=== PATIENT | female | born 1965 | race Hispanic/Latino ===

== ENCOUNTER 2018-06-28 15:38 | Emergency (ER) | payer BC ==
[2018-06-28 15:40] VITALS: BMI 39.7
[2018-06-28 15:50] VITALS: RESP 18
[2018-06-28] MEDS ORDERED: Sodium Chloride 0.9% 1,000 ML IV ONE (16:02)
[2018-06-28] MEDS ORDERED: Sodium Chloride 0.9% 1,000 ML ONE (16:17)
--- NOTE | 2018-06-28 16:18 | C.PDOC ---
History Of Present Illness 52 year old female with a history of diabetes presents to the emergency department with complaints of pain, swelling, and warmth to her right lower chin area for the past three days. Patient states that she has tried applying both hot and cold pressure to the area, as well as alcohol with no relief. She denies gingival or teeth pain. Time Seen by Provider: 06/28/18 15:53 Chief Complaint (Nursing): Abnormal Skin Integrity History Per: Patient History/Exam Limitations: no limitations Onset/Duration Of Symptoms: Days (3) Current Symptoms Are (Timing): Still Present Location Of Injury: Right: Face Quality Of Symptoms: Painful, Swollen. denies: Draining Past Medical History Reviewed: Historical Data, Nursing Documentation, Vital Signs Vital Signs: Last Vital Signs Temp 98.4 F 06/28/18 15:43 Pulse 77 06/28/18 15:43 Resp 18 06/28/18 15:43 BP 152/88 H 06/28/18 15:43 Pulse Ox 97 06/28/18 16:25 - Medical History PMH: Anxiety, Arthritis, Depression, Diabetes, HTN, Hypercholesterolemia, Hypothyroidism Denies: Chronic Kidney Disease Comment Only: Sleep Apnea (NEEDS TO REPEAT TEST) Surgical History: Endoscopy, Tonsillectomy - [facility] Procedures ESOPHAGOGASTRODUODENOSCOPY [EGD] W/CLOSED BIOPSY (06/23/14) LAPAROSCOPIC VERTICAL (SLEEVE) GASTRECTOMY (10/10/14) OTHER GASTROSCOPY (10/10/14) TETANUS TOXOID ADMINIST (04/29/14) Family History: States: No Known Family Hx - Social History Hx Tobacco Use: No Hx Alcohol Use: No Hx Substance Use: Yes - Immunization History Hx Tetanus Toxoid Vaccination: No Hx Influenza Vaccination: No Hx Pneumococcal Vaccination: No Review Of Systems Except As Marked, All Systems Reviewed And Found Negative. ENT: Negative for: Mouth Pain Skin: Positive for: Other (pain to the right lower chin) Physical Exam - Physical Exam Appears: Non-toxic, No Acute Distress Skin: Warm, Dry Head: Atraumatic, Normacephalic, Other (3cm indurated abscess immediately below the chin towards the right side ) Eye(s): bilateral: Normal Inspection Oral Mucosa: Moist Teeth: Normal Dentition, No Other (abscess) Gingiva: Normal Appearing, No Erythema, No Ulceration Neck: Normal, Supple Lymphatic: No Adenopathy Cardiovascular: Rhythm Regular Respiratory: Normal Breath Sounds, No Rales, No Rhonchi, No Wheezing Extremity: Normal ROM ED Course And Treatment - Laboratory Results Result Diagrams: 06/28/18 16:18 06/28/18 16:18 O2 Sat by Pulse Oximetry: 97 (RA) Pulse Ox Interpretation: Normal Progress Note: Plan: Bloodwork. IV Fluids. Toradol 30mg IVP Disposition Counseled Patient/Family Regarding: Studies Performed, Diagnosis, Need For Followup, Rx Given - Disposition Referrals: Maritza Fleming MD [Staff Provider] - Disposition: HOME/ ROUTINE Disposition Time: 17:20 Condition: STABLE Additional Instructions: FOLLOW UP WITH YOUR DOCTOR IN 1-2 DAYS USE MEDICATIONS DIRECTED APPLY WARM COMPRESSES TO AREA SEVERAL TIMES DAILY RETURN TO ER IF SYMPTOMS WORSEN OR DO NOT IMPROVE Prescriptions: Clindamycin [Cleocin] 300 mg PO TID #21 cap Naproxen 375 mg PO BID PRN #20 tablet PRN Reason: pain Instructions: Boil (DC) Forms: [address] (Burmese) Print Language: MARTIN[place]QUAIS - POA Present On Arrival: None - Clinical Impression Clinical Impression: Abscess of chin - Scribe Statement The provider has reviewed the documentation as recorded by the Scribe (Carl Mcconnell) Provider Attestation: All medical record entries made by the Scribe were at my direction and personally dictated by me. I have reviewed the chart and agree that the record accurately reflects my personal performance of the history, physical exam, medical decision making, and the department course for this patient. I have also personally directed, reviewed, and agree with the discharge instructions and disposition.
[2018-06-28 16:24] LABS: BASO # 0.1 K/uL (0.0-0.2); BASO % 0.7 % (0.0-2.0); EOS # 0.1 K/uL (0.0-0.7); EOS % 1.9 % (0.0-4.0); HEMOGLOBIN 12.5 g/dL (11.0-16.0); LYMPH # 2.9 K/uL (1.0-4.3); LYMPH % 41.2 % (20.0-40.0); MEAN CORPUSCULAR HEMOGLOBIN 25.8 pg (27.0-31.0); MEAN CORPUSCULAR HGB CONC 33.9 g/dL (33.0-37.0); MEAN PLATELET VOLUME 7.9 fL (7.2-11.7); MONO # 0.5 K/uL (0.0-0.8); MONO % 6.9 % (0.0-10.0); NEUT # 3.5 K/uL (1.8-7.0); NEUT % 49.3 % (50.0-75.0); NRBC % 0.1 % (0.0-2.0); RBC 4.85 Mil/uL (3.80-5.20); RED CELL DISTRIBUTION WIDTH 13.3 % (11.5-14.5)
[2018-06-28 16:35] LABS: ALB/GLOB RATIO 1.6 (1.0-2.1); ALBUMIN 3.8 g/dL (3.5-5.0); ALT/SGPT 35 U/L (9-52); AST/SGOT 16 U/L (14-36); BLOOD UREA NITROGEN 11 mg/dL (7-17); CALCIUM 9.1 mg/dl (8.6-10.4); GFR NON-AFRICAN AMERICAN > 60
[2018-06-28] MEDS ORDERED: Sodium Chloride 0.9% 500 ML IV ONE ×2 (16:51→17:16)
[2018-06-28 17:25] VITALS: BP 146/83; PULSE 76; TEMP 98; O2SAT 98
== END 2018-06-28 17:55 | disposition home or self-care (01) ==
LOC: C.ER 15:38
DX: L02.01 Cutaneous abscess of face (principal)
CPT/HCPCS: 80053; 82009; 83930; 85025; 96365; 96375; 99284; J1885; J7030; J7040